=== PATIENT | female | born 1955 | race Caucasian/White ===

== ENCOUNTER 2018-08-28 22:19 | Emergency (ER) | payer MEDICAID, OTHER ==
[~2018-08-28] VITALS: Ht 160 cm; Wt 85.7 kg
[2018-08-28 22:50] VITALS: BP 112/78
== END 2018-08-28 23:00 | disposition home or self-care (01) ==
LOC: ER 22:19
DX: R50.9 Fever, unspecified (principal); R56.9 Unspecified convulsions; Z76.0 Encounter for issue of repeat prescription